=== PATIENT | male | born 1960 | race Caucasian/White ===

== ENCOUNTER 2018-02-20 21:53 | Emergency (ER) | payer BC ==
[~2018-02-20] VITALS: Ht 182.9 cm; Wt 120.2 kg
[~2018-02-20 21:53] MED LIST: ARTHRITIS MED; ASPIRIN325 PO; ATROVENT15 ML NS; CATAPRES0.1 MG PO; CIPRO HC OTIC S10 ML OTIC; CIPROFLOXACIN500 M1 PO; DIAZEPAM2 MG PO; DICLOFENAC SODI75 MG PO; GLIPIZIDE 10 MG10 MG PO; HYDROCHLOROTHIA25 M1 PO; LIPITOR10 MG PO; LISINOPRIL-HCT1 EAC2 PO; LISINOPRIL20 MG PO; LOPID600 MG PO; LORTAB 5-500 T1 EAC1 PO; MULTIVITAMINS1 EAC7 PO; NIACIN500 M2 PO; NOVOLOG100 UNIT/1 SUBQ; PIOGLITAZONE15 MG PO; PREDNISONE50 MG PO; PROAIR HFA8.5 GM INH; SUPER B COMPLE150 MG PO; TOPROL XL100 MG PO; TRADJENTA5 MG PO; VICODIN 5-3001 EACH PO; VITAMIN C500 M1 PO; ZETIA10 MG PO; ZOFRAN ODT4 MG SUBLING; ZPAK PO
[2018-02-20 22:26] LABS: ABSOLUTE BASOPHILS 0.1 thou/uL (0.0-0.2); ABSOLUTE EOSINOPHILS 0.5 thou/uL (0.0-0.7); ABSOLUTE LYMPHOCYTES 2.8 thou/uL (0.8-5.3); ABSOLUTE MONOCYTES 1.1 thou/uL (0.0-1.2); ABSOLUTE NEUTROPHILS 6.6 thou/uL (1.6-8.1); BASOPHILS 1.3 %; EOSINOPHILS 4.8 %; HEMATOCRIT 48.4 % (42.0-52.0); HEMOGLOBIN 16.2 gm/dL (14.0-18.0); LYMPHOCYTES 25.4 %; MCH 28.5 pg (26.0-34.0); MCHC 33.4 g/dL (28.0-37.0); MCV 85.4 fL (80.0-100.0); MONOCYTES 9.6 %; NUCLEATED RBCS 0 /100WBC; PLATELET COUNT* 213 thou/uL (150-400); POLYS 58.9 %; RBC 5.67 mil/uL (4.50-6.00); WBC 11.1 thou/uL (4.0-11.0)
[2018-02-20 22:34] LABS: ANION GAP 12 mmol/L (7-16); BUN 39 mg/dL (7-18); CALCIUM 8.6 mg/dL (8.5-10.1); CHLORIDE 102 mmol/L (98-107); CO2 24 mmol/L (21-32); CREATININE 1.5 mg/dL (0.6-1.3); GLUCOSE 242 mg/dL (70-99); POTASSIUM 3.7 mmol/L (3.5-5.1); SODIUM 138 mmol/L (136-145)
[2018-02-20 22:37] LABS: PROTIME 10.3 Seconds (9.20-11.50)
[2018-02-20 22:45] LABS: ALBUMIN 3.8 g/dL (3.4-5.0); ALKALINE PHOSPHATASE 120 U/L (46-116); LIPASE 246 U/L (73-393); NT-PRO BRAIN NAT PEPTIDE 46 pg/mL (<300); SGOT 25 U/L (15-37); SGPT 35 U/L (30-65); TOTAL BILIRUBIN 0.2 mg/dL (<0.1-1.0); TOTAL PROTEIN 7.5 g/dL (6.4-8.2); TROPONIN-I LEVEL <0.06 ng/mL (<0.06)
[2018-02-21 00:22] LABS: URINE BILIRUBIN NEGATIVE (Negative); URINE BLOOD TRACE (Negative); URINE CLARITY CLEAR; URINE COLOR YELLOW; URINE GLUCOSE-RANDOM NEGATIVE (Negative); URINE KETONES NEGATIVE (Negative); URINE LEUKOCYTES-REFLEX NEGATIVE (Negative); URINE NITRITE-REFLEX NEGATIVE (Negative); URINE PROTEIN 1+ (Negative); URINE SPECIFIC GRAVITY 1.015 (1.005-1.030); URINE UROBILINOGEN 0.2 E.U./dl (0.2-1.0)
[2018-02-21 00:34] LABS: BACTERIA-REFLEX None Seen /HPF (None Seen); CASTS None Seen /LPF (None Seen); CRYSTALS None Seen /LPF (None Seen); MUCUS 0-3 Light strn/LPF (None Seen); SQUAMOUS NONE SEEN /LPF (0-3); URINE RBC None Seen /HPF (0-2); URINE WBC-REFLEX 0-5 Rare /HPF (0-5)
[2018-02-21 02:15] VITALS: BP 148/102
--- NOTE | 2018-02-21 12:32 | EKG ---
[place] [address] ELECTROCARDIOGRAM REPORT Name: AURORA MUJICA BRITTANY [id number] Admission: 02/20/18 Attend Phys: Discharge: 02/21/18 Date of : 64 Report #: [id number] THIS REPORT FOR: //name// [facility] ED Test Date: 2018-02-20 Test Time: 22:36:43 Pat Name: AURORA MUJICA Department: Room: Gender: M Attendant [place]: : 1960 Requested By: Kaylyn Arreaga Order Number: [id number] MD: Everett Petty Measurements Intervals [place] Rate: 69 P: -33 OR: 148 QRS: -35 QRSD: 119 T: 120 QT: 400 QTc: 429 Interpretive Statements Sinus rhythm Consider left atrial enlargement Left ventricular hypertrophy Nonspecific T abnormalities, lateral leads Anterior ST elevation, probably due to LVH Baseline wander in lead(s) V4 Compared to ECG 03/02/2015 22:46:19 T-wave abnormality now present ST (T wave) deviation now present Electronically Signed On 02-21-2018 12:32:39 [employer] by Everett Petty [email or web address] <ELECTRONICALLY SIGNED> By: Everett Petty MD, FACC 02/21/18 1232 35 35 Everett Petyt MD, FACC /EPI
== END 2018-02-21 02:20 | disposition short-term general hospital (02) ==
LOC: M.ERS 21:53
PROVIDERS: Emergency Medicine
DX: I65.23 Occlusion and stenosis of bilateral carotid arteries (principal); I65.03 Occlusion and stenosis of bilateral vertebral arteries; I73.9 Peripheral vascular disease, unspecified; I10 Essential (primary) hypertension; E11.9 Type 2 diabetes mellitus without complications; Z88.0 Allergy status to penicillin; Z88.5 Allergy status to narcotic agent; Z88.8 Allergy status to other drugs, medicaments and biological substances; Z79.4 Long term (current) use of insulin